=== PATIENT | female | born 2000 ===

== ENCOUNTER 2021-05-18 06:53 | Inpatient (IN) | payer OTHER ==
[~2021-05-18] VITALS: Ht 167.6 cm; Wt 3.6 kg
[2021-05-18] MEDS ORDERED: PRENATAL TABLE1 EAC3 PO (07:46)
[2021-05-21] MEDS ORDERED: Tylenol #3 PO (10:16)
[2021-05-21] MEDS ORDERED: NAPR500T14 PO (10:16)
== END 2021-05-21 11:39 | disposition home or self-care (01) | DRG 788 ==
LOC: LDR 06:53 → OB/GYN 06:53
PROVIDERS: ADMIT Obstetrics & Gynecology; ATTEND Obstetrics & Gynecology
PROC: 4A1HXCZ Monitoring of Products of Conception, Cardiac Rate, External Approach (ICD-10-PCS; 2021-05-18)
PROC: 10D00Z1 Extraction of Products of Conception, Low, Open Approach (ICD-10-PCS; principal; 2021-05-18 12:25)
DX: O34.211 Maternal care for low transverse scar from previous cesarean delivery (principal); Z3A.38 38 weeks gestation of pregnancy; Z37.0 Single live birth; Z20.822 Contact with and (suspected) exposure to COVID-19